=== PATIENT | male | born 1980 ===

== ENCOUNTER 2024-03-02 16:00 | Outpatient (CLI) | payer BC | END 2024-03-02 16:01 | disposition home or self-care (01) | LOC: CSHSLEEP 16:00 | PROVIDERS: ATTEND Family Medicine | DX: G47.33 Obstructive sleep apnea (adult) (pediatric) (principal); G25.89 Other specified extrapyramidal and movement disorders; R51.9 Headache, unspecified; R06.83 Snoring | CPT/HCPCS: 95800 ==